=== PATIENT | female | born 2000 | race Hispanic/Latino ===

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

== ENCOUNTER 2023-04-12 12:25 | Emergency (ER) | payer OTHER | END 2023-04-12 13:14 | disposition home or self-care (01) | LOC: ERS 12:25 | DX: H10.9 Unspecified conjunctivitis (principal) | CPT/HCPCS: 99282 ==